=== PATIENT | male | born 1975 | race Caucasian/White ===

== ENCOUNTER 2020-04-27 14:26 | Outpatient (CLI) | payer OTHER, SELFPAY ==
--- NOTE | ~2020-04-27 | XR_ITS ---
EXAMINATION: XR thoracic spine 3V DATE: 04/27/2020 14:55 INDICATION: Dorsalgia. TECHNIQUE: 3 views of thoracic spine were obtained. COMPARISON: Thoracic spine radiographs 04/20/2017 FINDINGS: There is 3 degrees levocurvature of thoracic spine. Vertebral body heights are normal. Ther e is mildly decreased disc height at multiple levels in mid thoracic spine. There are endplate osteop hytes at multiple levels. The facet joints are unremarkable. IMPRESSION: 1. Mild thoracic spondylosis. Reviewed, dictated and finalized at location A. 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
--- NOTE | ~2020-04-27 | XR_ITS ---
EXAMINATION: XR lumbar spine 2-3V DATE: 04/27/2020 14:55 INDICATION: Low back pain. TECHNIQUE: 3 views of lumbar spine were obtained. COMPARISON: Lumbar spine radiographs 04/20/2017 FINDINGS: Bone alignment is normal. There is chronic anterior wedging of T11-L1 vertebral bodies. The re is mildly decreased disc height at T12-L1 and L2-L3. There are endplate osteophytes at most levels . The facet joints are unremarkable. IMPRESSION: 1. Mild lumbar spondylosis. Reviewed, dictated and finalized at location A. 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 Mild lumbar spondylosis.
== END 2020-04-27 14:27 | disposition home or self-care (01) ==
PROVIDERS: PCP Family Medicine; Visit Provider Nurse Practitioner Family
DX: M47.815 Spondylosis without myelopathy or radiculopathy, thoracolumbar region (principal)
CPT/HCPCS: 72072; 72100

== ENCOUNTER 2020-12-29 09:06 | Outpatient (CLI) | payer OTHER, SELFPAY ==
--- NOTE | 2020-12-29 12:00 | NEURO_ITS ---
Impression: # Known diabetic complains of numbness of lower more than upper extremities. # Generalized neuropathy, lower extremities more than upper extremities. # Carpal Tunnel Syndrome of mild degree. # Ulnar neuropathy across the elbow. # Needle/EMG exam not requested. Nerve Conduction Studies Anti Sensory Summary Table Stim Site NR Peak (ms) P-T Amp (?V) Site1 Site2 Delta-P (ms) Dist (cm) Hadley (m/s) Left Median Anti Sensory (2-3nd Digit) Wrist 4.2 62.6 Wrist 2-3nd Digit 4.2 14.0 33 Wrist 4.4 23.6 Wrist 2-3nd Digit 4.2 14.0 33 Right Median Anti Sensory (2-3nd Digit) Wrist 4.0 58.8 Wrist 2-3nd Digit 4.0 14.0 35 Wrist 4.4 27.2 Wrist 2-3nd Digit 4.0 14.0 35 Left Radial Anti Sensory (Base 1st Digit) Wrist 2.6 22.8 Wrist Base 1st Digit 2.6 0.0 Right Radial Anti Sensory (Base 1st Digit) Wrist 2.5 15.1 Wrist Base 1st Digit 2.5 0.0 Left Sup Fibular Anti Sensory (Ant Lat Mall) NO RESPONSE 14 cm NR 14 cm Ant Lat Mall 16.0 Right Sup Fibular Anti Sensory (Ant Lat Mall) NO RESPONSE 14 cm NR 14 cm Ant Lat Mall 16.0 Left Sural Anti Sensory (Lat Mall) Calf 3.5 36.1 Calf Lat Mall 3.5 16.0 46 Right Sural Anti Sensory (Lat Mall) NO RESPONSE Calf NR Calf Lat Mall 16.0 Left Ulnar Anti Sensory (5th Digit) Wrist 2.8 16.2 Wrist 5th Digit 2.8 14.0 50 Right Ulnar Anti Sensory (5th Digit) Wrist 3.4 22.2 Wrist 5th Digit 3.4 14.0 41 Motor Summary Table Stim Site NR Onset (ms) O-P Amp (mV) Site1 Site2 Delta-0 (ms) Dist (cm) Hadley (m/s) Left Median Motor (Abd Poll Brev) Wrist 4.6 1.5 Elbow Wrist 5.4 29.0 54 Elbow 10.0 2.1 Right Median Motor (Abd Poll Brev) Wrist 4.4 1.1 Elbow Wrist 4.8 29.0 60 Elbow 9.2 1.0 Left Peroneal Motor (Vastus Med) Ankle 6.5 0.3 Popit Ankle 12.4 39.0 31 Popit 18.9 0.3 Right Peroneal Motor (Vastus Med) NO RESPONSE Ankle NR Popit Ankle 0.0 Popit NR Left Tibial Motor (Abd Thompson Brev) NO RESPONSE Ankle NR Knee NR Right Tibial Motor (Abd Thompson Brev) NO RESPONSE Ankle NR Knee NR Left Ulnar Motor (Abd Dig Minimi) Wrist 3.0 3.2 A Elbow Wrist 5.9 29.0 49 A Elbow 8.9 2.3 B Elbow Wrist 3.9 23.0 59 B Elbow 6.9 3.2 Right Ulnar Motor (Abd Dig Minimi) Wrist 3.1 4.2 A Elbow Wrist 6.4 30.0 47 A Elbow 9.5 3.3 B Elbow Wrist 4.1 23.0 56 B Elbow 7.2 2.3 F Wave Studies NR F-Lat (ms) L-R F-Lat (ms) Left Median (Mrkrs) (Abd Poll Brev) 30.86 0.30 Right Median (Mrkrs) (Abd Poll Brev) 31.15 0.30 Left Peroneal (Mrkrs) (EDB) DISPERSED RESPONSE NR Right Peroneal (Mrkrs) (EDB) NO RESPONSE NR Left Tibial (Mrkrs) (Abd Hallucis) 53.33 Right Tibial (Mrkrs) (Abd Hallucis) NO RESPONSE NR Left Ulnar (Mrkrs) (Abd Dig Min) 31.27 0.23 Right Ulnar (Mrkrs) (Abd Dig Min) 31.51 0.23 MTDD
== END 2020-12-29 09:07 | disposition home or self-care (01) ==
PROVIDERS: PCP Family Medicine; Visit Provider Nurse Practitioner Family
DX: R20.0 Anesthesia of skin (principal); G56.03 Carpal tunnel syndrome, bilateral upper limbs; G62.9 Polyneuropathy, unspecified
CPT/HCPCS: 95913

== ENCOUNTER 2021-03-10 08:15 | Outpatient (CLI) | payer OTHER, SELFPAY ==
--- NOTE | ~2021-03-10 | NM_ITS ---
EXAMINATION: NM karen stress w perfusion DATE: 03/10/2021 10:38 INDICATION: Atherosclerotic heart disease of [place] coronary arteries. TECHNIQUE: Rest images were obtained following intravenous administration of 9.3 mCi Tc99m tetrofosmi n (Myoview). The patient was infused intravenously with Lexiscan (regadenoson). Then, 28.9 mCi Tc99m tetrofosmin (Myoview) was administered intravenously, and stress images were obtained. Data was recon structed into short axis and horizontal and vertical long axis SPECT images. Gated SPECT images were also obtained. COMPARISON: Myocardial perfusion imaging 11/16/2017 FINDINGS: There is no definite reversible or fixed perfusion abnormality to suggest ischemia or infar ction. There is no segmental wall motion abnormality. Left ventricular ejection fraction measures 6 8%. IMPRESSION: 1. No definite ischemia or infarct. 2. Normal left ventricular ejection fraction measuring 68%. Reviewed, dictated and finalized at location A. CEMENTER
--- NOTE | 2021-03-10 08:29 | EST_ITS ---
Patient Info Name: Tacho Bone Age: 45 years : 1975 Gender: Male Ht: 70 in Wt: 244 lbs BSA: 2.38 m2 HR: 71 bpm BP: 117 / 78 mmHg Heart Rhythm: Sinus Rhythm Exam Date: 03/10/2021 9:23 AM Exam Location: [facility] Stress Patient Status: Outpatient Admit Date: 03/10/2021 Staff Ordering Physician: Nitin Alba DO Attending Provider: Nitin Alba DO Exercise Technologist: Luiza Gregg CT Exercise Physician: Nitin Alba DO Exam Type: CA stress karen w NM Study Info Indications I25.10 - Atherosclerotic heart disease of [place] coronary artery without angina pectoris A regadenoson stress test was performed. Summary 1. 1. Negative lexiscan stress test for ischemic ST changes by ECG criteria. 2. 2. Stable hemodynamics throughout the test. 3. 3. Nuclear scan to follow and will be reported separately. Please correlate with it. 4. 4. Patient informed of the above results. Protocol: Lexiscan Stress ECG Details Stage: REST Duration (min): 1 min : 5 sec HR (bpm): 71 SBP (mmHg): 114 DBP (mmHg): 78 Stage: REST Duration (min): 13 min : 47 sec HR (bpm): 69 SBP (mmHg): 114 DBP (mmHg): 78 Stage: STAGE 1 Duration (min): 0 min : 59 sec HR (bpm): 92 SBP (mmHg): 133 DBP (mmHg): 48 Stage: RECOVERY Duration (min): 1 min : 0 sec HR (bpm): 91 SBP (mmHg): 133 DBP (mmHg): 48 Stage: RECOVERY Duration (min): 2 min : 0 sec HR (bpm): 86 SBP (mmHg): 133 DBP (mmHg): 48 Stage: RECOVERY Duration (min): 3 min : 0 sec HR (bpm): 84 SBP (mmHg): 152 DBP (mmHg): 90 Stage: RECOVERY Duration (min): 3 min : 10 sec HR (bpm): 81 SBP (mmHg): 152 DBP (mmHg): 90 Rest HR: 69 bpm Peak HR: 92 bpm Rest Sys BP: 114 mmHg Peak Sys BP: 152 mmHg Max Pred HR: 175 bpm % Max Pred HR: 53 % Target HR: 149 bpm Max RPP: 13,984 bpm*mmHg Termination Reason: Completed protocol Cardiac Symptoms: Shortness of breath, Stomach discomfort Total Time: 1 min : 0 sec Rest Paez BP: 78 mmHg Peak Paez BP: 90 mmHg Total Dose: 0.4 mg Resting ECG Sinus rhythm, cannot r/o septal infarct, age indeterminate. Stress ECG No ST changes. Arrhythmias None. Report Signatures
== END 2021-03-10 08:16 | disposition home or self-care (01) ==
PROVIDERS: PCP Family Medicine; Visit Provider Internal Medicine Cardiovascular Disease
DX: I25.10 Atherosclerotic heart disease of native coronary artery without angina pectoris (principal)
CPT/HCPCS: 78452; 93017; A9502; J2785

== ENCOUNTER 2021-07-29 14:54 | Outpatient (CLI) | payer OTHER, SELFPAY ==
--- NOTE | ~2021-07-29 | MR_ITS ---
EXAMINATION: MR lumbar spine wo con DATE: 07/29/2021 16:01 INDICATION: Lumbar spondylosis without myelopathy or radiculopathy. TECHNIQUE: Magnetic resonance imaging (MRI) of the lumbar spine was performed without intravenous con trast. Sequences included sagittal T2-weighted FSE, sagittal T2-weighted FS FSE, sagittal T1-weighted FSE, and axial T2-weighted FSE. COMPARISON: Lumbar spine MRI 09/14/2016 FINDINGS: Bone alignment is normal. There is mild chronic anterior wedging of T12 vertebral body. The re is a chronic compression fracture of L1 with 2/5 loss of height. There are Schmorl's nodes of supe rior endplates of L3 on S1. There is mildly decreased disc height at L2-L3. The distal spinal cord si gnal intensity is normal. The conus medullaris is at L1-L2. The following disc levels are specificall y discussed: L1-L2: There is a central protrusion. There is mild bilateral facet joint osteoarthritis. There is no neural foraminal stenosis. There is no central canal stenosis. L2-L3: The disc does not extend beyond the endplate margin. There is mild bilateral facet joint osteo arthritis. There is no neural foraminal stenosis. There is no central canal stenosis. L3-L4: The disc does not extend beyond the endplate margin. There is mild bilateral facet joint osteo arthritis. There is no neural foraminal stenosis. There is no central canal stenosis. L4-L5: The disc does not extend beyond the endplate margin. There is mild bilateral facet joint osteo arthritis. There is no neural foraminal stenosis. There is no central canal stenosis. L5-S1: The disc does not extend beyond the endplate margin. There is mild bilateral facet joint osteo arthritis. There is no neural foraminal stenosis. There is no central canal stenosis. IMPRESSION: 1. Mild lumbar spondylosis, stable from 09/14/2016. Reviewed, dictated and finalized at location A.
== END 2021-07-29 14:55 | disposition home or self-care (01) ==
PROVIDERS: PCP Family Medicine; Visit Provider Nurse Practitioner Family
DX: M47.816 Spondylosis without myelopathy or radiculopathy, lumbar region (principal)
CPT/HCPCS: 72148

== ENCOUNTER 2023-05-11 11:47 | Outpatient (CLI) | payer OTHER, SELFPAY ==
[2023-05-11 12:12] LABS: Hematocrit 49.9 % (42.0-52.0); Mean Corpuscular HGB Conc 34.1 g/dl (32-36); Mean Corpuscular Hemoglobin 30.5 pg (26-34); Mean Corpuscular Volume 89.6 fl (80-100); Mean Platelet Volume 10.6 fl (7.4-10.4); Platelet Count Result 233 k/mm3 (150-375); Red Blood Count 5.57 M/mm3 (4.6-6.20); Red Cell Distribution Width 12.6 % (11.5-14.5); White Blood Count 9.8 K/mm3 (4.5-10.0)
--- NOTE | 2023-05-11 12:25 | ECG_ITS ---
Measurements Intervals Manning Rate: 77 P: 62 AL: 142 QRS: 11 QRSD: 102 T: 56 QT: 382 QTc: 433 Interpretive Statements SINUS RHYTHM WITH FREQUENT VENTRICULAR PREMATURE COMPLEXES POSSIBLE LEFT ATRIAL ENLARGEMENT [-0.1mV P WAVE IN V1/V2] POSSIBLE ANTERIOR MYOCARDIAL INFARCTION , OF INDETERMINATE AGE [30 ms Q WAVE IN V3/V4, OR R < 0.2 mV IN V4] COMPARED TO ECG 07/14/2018 07:30:30 PVCS NOW PRESENT Electronically Signed On 05-11-2023 12:43:08 PORTFOLIO ADMINISTRATOR by Opal Quiles M.D.
[2023-05-11 12:35] LABS: Alanine Aminotransferase 35 U/L (6-50); Albumin Level 4.3 g/dL (3.5-5.1); Alkaline Phosphatase 75 U/L (38-126); Anion Gap 6 mmol/L (8-16); Aspartate Amino Transferase 28 U/L (17-59); Bilirubin,Total 0.7 mg/dL (0.2-1.3); Blood Urea Nitrogen 19 mg/dL (9-20); Calcium 9.6 mg/dL (8.4-10.2); Carbon Dioxide 25 mmol/L (22-30); Chloride 103 mmol/L (98-107); Cholesterol 159 mg/dL (0-200); Estimated Glomerular Filt Rate > 60; Glucose 171 mg/dL (65-110); HDL Direct 22 mg/dL; Potassium 4.4 mmol/L (3.4-5.0); Sodium 134 mmol/L (137-145); Triglycerides 350 mg/dL (<150)
[2023-05-11 12:46] LABS: LDL Cholesterol Direct 88 mg/dL
[2023-05-11 13:03] LABS: Prostate Specific Antigen 0.5 ng/mL (< OR = 4.0)
[2023-05-11 13:18] LABS: Creatinine Urine 88.6 mg/dL
[2023-05-11 13:22] LABS: Microalbumin Urine Random 8.9 mg/L (0-16.7)
== END 2023-05-11 11:48 | disposition home or self-care (01) ==
LOC: ANHLAB 11:49
PROVIDERS: PCP Family Medicine; Visit Provider Nurse Practitioner Family
DX: I25.2 Old myocardial infarction (principal); F41.9 Anxiety disorder, unspecified; Z72.0 Tobacco use; I10 Essential (primary) hypertension; E11.65 Type 2 diabetes mellitus with hyperglycemia; Z12.5 Encounter for screening for malignant neoplasm of prostate; R06.02 Shortness of breath; R94.31 Abnormal electrocardiogram [ECG] [EKG]
CPT/HCPCS: 36415; 80053; 80061; 82043; 84153; 84443; 85027; 93005; G0103

== ENCOUNTER 2024-08-05 14:38 | Emergency (ER) | payer OTHER, SELFPAY ==
[2024-08-05 14:49] VITALS: BP 118/80; PULSE 73; RESP 18; TEMP 36.1; O2SAT 98
--- NOTE | 2024-08-05 15:12 | ED_ITS ---
HPI - Ear Problem General Chief complaint: Ear Stated complaint: right ear pain Time Seen by Provider: 08/05/24 15:05 Source: patient and RN notes reviewed Mode of arrival: ambulatory Limitations: no limitations History of Present Illness HPI Narrative: 49-year-old male presents Express Care complaining of right ear pain for 2 weeks. Patient has taken ibuprofen as needed for pain with some relief. Patient states sometimes the pain in his ear radiates into his right jaw.. Patient denies any upper respiratory symptoms, fevers, body aches, chills, cough. Patient denies any dizziness or hearing problems. Related Data Home Medications ?Medication ?Instructions ?Recorded ?Confirmed ?Last Taken ?Type aspirin 81 mg tablet,delayed 81 mg PO DAILY 08/16/22 08/10/23 Unknown History release (Adult Low Dose Aspirin) Allergies Allergy/AdvReac Type Severity Reaction Status Date / Time acetaminophen AdvReac Unknown Nausea and Verified 08/05/24 14:54 Vomiting codeine AdvReac Unknown Nausea and Verified 08/05/24 14:54 Vomiting Review of Systems Review of Systems: CONSTITUTIONAL: Denies fever, chills, or sweats. EYES: Denies visual changes, redness, or discharge. ENT: Denies rhinorrhea, congestion, sore throat. Positive for otalgia. CARDIOVASCULAR: Denies chest pain, palpitations, or edema. RESPIRATORY: Denies cough or dyspnea. GASTROINTESTINAL: Denies abdominal pain, nausea, vomiting, or diarrhea. GENITOURINARY: Denies dysuria or hematuria. SKIN: Denies rash or itching. MUSCULOSKELETAL: Denies back pain, joint pain, or myalgia. NEUROLOGIC: Denies headache, numbness, or weakness. PSYCHIATRIC: Denies anxiety or depression. All other systems reviewed are negative, except as documented in HPI. FORMERLY [facility] Past Medical History Medical History Hx of myocardial infarction Screening for malignant neoplasm of prostate BMI 36.0-36.9,adult Screening for thyroid disorder Exposure to COVID-19 virus Abnormal NCS (nerve conduction studies) Thoracic back sprain BMI 33.0-33.9,adult Tobacco abuse Acute low back pain without sciatica Smoking Surgical History Surgical History History of right coronary artery stent placement Family History Family History Father Family history of cardiovascular disease Hypertension Family history of heart disease in male family member before age 55 Other Family history of arthritis Social History Social History Smoking status: Current every day smoker Tobacco type: cigarettes Second hand tobacco smoke exposure: No Alcohol intake: current Substance use: never Substance use type: does not use Living arrangements: with family Occupation/Education: occupation Gender identity (if verbalized by the patient): Male Comments At the time of my signature, I reviewed and agree with the nursing past medical, surgical, social, and family history. There is no relevant family history pertinent to the patient complaint. Exam Narrative: GENERAL: This is a well-nourished, well-developed adult, in no apparent distress. They are non ill-appearing, nontoxic appearing. HEAD: normocephalic, atraumatic. EYES: Sclera clear/white. Conjunctiva normal. Vision is grossly intact. Extraocular movements intact EARS: External ears normal, left auditory canals with impacted cerumen and without drainage or swelling, right auditory canal with excessive cerumen, canal is erythematous. Unable to visualize TMs bilaterally.Hearing grossly intact. NOSE: External nose normal with no obvious nasal discharge, nasal turbinates without redness, no rhinorrhea. THROAT: Mucous membranes moist, posterior pharynx clear, without erythema or swelling. Uvula midline. NECK: Neck supple, non-tender without lymphadenopathy, masses or thyromegaly. CARDIOVASCULAR: Regular rate and rhythm without murmurs, gallops, or rubs. RESPIRATORY: Clear to auscultation. Breath sounds equal bilaterally. No wheezes, rales, or rhonchi. GASTROINTESTINAL: Abdomen soft, non-tender, nondistended. Bowel sounds are active. No hepato-splenomegaly, or palpable masses. No guarding. SKIN: warm, Dry, intact with no suspicious lesions or rash, good texture and turgor. NEURO: awake, alert, and oriented to person, place and time. There were no obvious focal neurologic abnormalities. EXTREMITIES: No joint tenderness, effusion, or edema noted. BACK: Nontender without deformity. No CVA tenderness. Course Course Emergency Course: Portions of this record may have been created with voice recognition software Level of Care: Express Care Visit Vital Signs Vital signs: Vital Signs Temperature 97.0 F L 08/05/24 14:49 Pulse Rate 73 08/05/24 14:49 Respiratory Rate 18 08/05/24 14:49 Blood Pressure 118/80 08/05/24 14:49 Pulse Oximetry 98 08/05/24 14:49 Oxygen Delivery Room Air 08/05/24 14:49 Temperature 97.0 F L 08/05/24 14:49 Pulse Rate 73 08/05/24 14:49 Respiratory Rate 18 08/05/24 14:49 Blood Pressure 118/80 08/05/24 14:49 Pulse Oximetry 98 08/05/24 14:49 Oxygen Delivery Room Air 08/05/24 14:49 Reviewed Procedures Ear Wax Removal Both Ears: Ear Wax Removal Date: 08/05/24 Ear Wax Removal Time: 15:35 Cerumenolytic Used: other (Water with low small amount of hydrogen peroxide) Results: Re-examined: cerumen removed completely (Right auditory canal completely removed), some cerumen remains (Left auditory canal remains impacted) and removal reattempted (Unable to remove cerumen and left ear canal) TM Examination: TM(s) perforation (Right TM perforation) Ear Canal Exam: atraumatic and other (Erythematous to the right auditory canal, left auditory canal without swelling or drainage.) Patient Tolerated Procedure: well Complications: no problems Technique: ear canal irrigated (Bilateral auditory canals irrigated) and ear canal curetted (Left auditory canal curetted without success. No curette used to right auditory canal) Additional Comments: After irrigation to the right auditory canal there is evidence of a right TM perforation. Attempted to irrigate left auditory canal unable to remove impacted cerumen with curette. Medical Decision Making MDM Narrative Medical decision making narrative: Patient has evidence of a right otitis externa on the right auditory canal. It was complicated by impacted cerumen. In order to prevent poor penetration of antibiotic drops to the auditory canal, it was elected to irrigate the right auditory canal to remove excessive earwax to allow for better treatment the otitis externa. After irrigation to the right auditory canal, the cerumen was successfully removed through irrigation. However, after irrigation re- examination with otoscope revealed that the patient has a perforated right TM. Given the evidence of infection it is likely the patient had otitis media that led to a spontaneous perforation the right TM. Patient denies any tinnitus, dizziness, or hearing problems. Will treat empirically with ofloxacin ear drops and amoxicillin along with a ENT referral for the perforated eardrum. Attempted to remove earwax with irrigation and curette to the left auditory canal without success. Patient denies any pain or problems to the left ear. Recommend debrox to the left auditory canal to soften earwax. Advised patient not place any debrox in the right ear. Discussed physical exam findings. Anticipatory guidance given. Advised supportive measures and signs/symptoms to go to the ER. Pt is appropriate for outpt treatment and f/u. Differential Diagnosis Differential Diagnosis: Otitis media, otitis externa, perforated eardrum, impacted cerumen Vital Signs Vital Signs: Vital Signs Temperature 97.0 F L 08/05/24 14:49 Pulse Rate 73 08/05/24 14:49 Respiratory Rate 18 08/05/24 14:49 Blood Pressure 118/80 08/05/24 14:49 Pulse Oximetry 98 08/05/24 14:49 Oxygen Delivery Room Air 08/05/24 14:49 Temperature 97.0 F L 08/05/24 14:49 Pulse Rate 73 08/05/24 14:49 Respiratory Rate 18 08/05/24 14:49 Blood Pressure 118/80 08/05/24 14:49 Pulse Oximetry 98 08/05/24 14:49 Oxygen Delivery Room Air 08/05/24 14:49 Critical Care Time Critical Care Time Critical Care Time: No Discharge Plan Discharge Clinical Impression: Otitis externa, Cerumen impaction, Perforated ear drum Patient Disposition: Home Condition: Stable Instructions: Ear Infection (ED) Additional Instructions: Use the ofloxacin ear drops as directed to the right ear. Take the amoxicillin as directed. After irrigating the earwax I your right ear it appears that your right ear drum is perforated likely from a previous infection. Please avoid any water in your right ear. Do not use Q-tips. Do not use the debrox in the right ear. You still have earwax remaining in your left ear. You may use Debrox 5-10 drops into the left ear twice a day for 4 days to soften the earwax. You will need to follow-up with an research scientist about your perforated eardrum. Please follow-up with primary care provider in 3-5 days. If her symptoms worsen, you develop any hearing problems, dizziness or any other concerns please go to the ER immediately. Patient Language: Khmer Prescriptions: New ofloxacin 0.3 % drops 10 drp RIGHT EAR DAILY 7 Days Qty: 10 0RF amoxicillin 875 mg tablet 875 mg PO Q12H 10 Days Qty: 20 0RF No Action aspirin [Adult Low Dose Aspirin] 81 mg tablet,delayed release (DR/EC) 81 mg PO DAILY atorvastatin 80 mg tablet 80 mg PO DAILY Qty: 90 2RF gabapentin 300 mg capsule 300 mg PO DAILY Qty: 30 3RF Rx Instructions: in a.m with 600 mg tab Rybelsus 14 mg tablet 14 mg PO DAILY Qty: 90 4RF paroxetine HCl 10 mg tablet See Rx Instructions .ROUTE .COMPLEX Qty: 90 1RF Dose Instruction: TAKE 1 TABLET BY MOUTH DAILY Rx Instructions: TAKE 1 TABLET BY MOUTH DAILY sildenafil 50 mg tablet 50 mg PO DAILY PRN (Reason: sexual activity) Qty: 9 1RF Jardiance 25 mg tablet 25 mg PO DAILY Qty: 90 0RF albuterol sulfate 90 mcg/actuation HFA aerosol inhaler 1 inh inhalation Q4H PRN (Reason: shortness of breath or wheezing) Qty: 8.5 0RF metoprolol tartrate 50 mg tablet 50 mg PO BID Qty: 180 1RF Breztri Aerosphere 160-9-4.8 mcg/actuation HFA aerosol inhaler 2 inh inhalation BID Qty: 10.7 0RF clopidogrel 75 mg tablet See Rx Instructions .ROUTE .COMPLEX Qty: 90 3RF Dose Instruction: TAKE 1 TABLET BY MOUTH DAILY Rx Instructions: TAKE 1 TABLET BY MOUTH DAILY lisinopril 10 mg tablet 5 mg PO DAILY Qty: 45 1RF gabapentin 600 mg tablet See Rx Instructions .ROUTE .COMPLEX Qty: 270 0RF Dose Instruction: TAKE 1 TABLET BY MOUTH THREE TIMES DAILY Rx Instructions: TAKE 1 TABLET BY MOUTH THREE TIMES DAILY Follow-up/Referrals: Saad Aguilar MD [Physician] - (Right Perforated eardrum) Rizwan Alejo MD [Primary Care Provider] - Stand Alone Forms: Work/School Release IP Time of Disposition: 15:10
== END 2024-08-05 15:48 | disposition home or self-care (01) ==
PROVIDERS: PCP Family Medicine
DX: H60.91 Unspecified otitis externa, right ear (principal); H61.23 Impacted cerumen, bilateral; H72.91 Unspecified perforation of tympanic membrane, right ear; F17.210 Nicotine dependence, cigarettes, uncomplicated; I25.2 Old myocardial infarction; Z95.5 Presence of coronary angioplasty implant and graft; Z79.82 Long term (current) use of aspirin
CPT/HCPCS: 69209; 69210; 99213; A9270; G0463

== ENCOUNTER 2024-08-23 11:26 | Emergency (ER) | payer OTHER, SELFPAY ==
--- NOTE | 2024-08-23 11:28 | ED.URI ---
HPI - URI/Sore Throat General Chief Complaint: Upper Respiratory Infection Stated Complaint: flu symptoms/rash Time Seen by Provider: 08/23/24 11:28 Source: patient Mode of arrival: ambulatory Limitations: no limitations History of Present Illness HPI Narrative: Patient is a 49-year-old male who presents with flu-like symptoms for a week. Patient states his headache and congestion or worse Monday but have improved since then. Patient was seen here and given amoxicillin on the . Patient finish antibiotics 10 days later. Patient has tried [id number] medication with no relief. Denies any fever, chills, nausea, vomiting, diarrhea. Patient also has petechial rash to extremities for 4 days. Denies any itching or pain to rash. Denies any new lotions, soaps or detergents. Related Data Home Medications ?Medication ?Instructions ?Recorded ?Confirmed ?Last Taken ?Type aspirin 81 mg tablet,delayed 81 mg PO DAILY 08/16/22 08/10/23 Unknown History release (Adult Low Dose Aspirin) Allergies Allergy/AdvReac Type Severity Reaction Status Date / Time acetaminophen AdvReac Unknown Nausea and Verified 08/23/24 12:30 Vomiting codeine AdvReac Unknown Nausea and Verified 08/23/24 12:30 Vomiting Review of Systems Review of Systems: All systems reviewed & are unremarkable except as noted in HPI and below Constitutional: Constitutional: Denies chills, Denies fatigue, Denies fever(s), Reports headache(s), Denies malaise and Denies weakness Eyes: Eyes: Denies blurry vision, Denies itchy eyes and Denies loss of vision ENT: Denies otalgia, Denies headache(s), Reports nasal congestion, Denies sinus pain and Denies sore throat Cardiovascular: Cardiovascular: Denies chest pain, Denies irregular heart rhythm and Denies dyspnea Respiratory: Respiratory: Reports cough and Denies dyspnea Gastrointestinal: Gastrointestinal: Denies abdominal pain, Denies diarrhea, Denies nausea and Denies vomiting Musculoskeletal: Musculoskeletal: Denies back pain, Denies myalgias and Denies arthralgias Integumentary/Breasts: Skin/Breast: Denies pruritus and Denies rash Neurologic: Denies headache(s), Denies loss of vision and Denies weakness Psychiatric: Psychiatric: Reports no additional psychiatric complaints Endocrine: Endocrine: Denies fatigue Allergic/Immunologic: Allergic/Immunologic: Denies itchy eyes PMFSH Past Medical History Medical History Hx of myocardial infarction Screening for malignant neoplasm of prostate BMI 36.0-36.9,adult Screening for thyroid disorder Exposure to COVID-19 virus Abnormal NCS (nerve conduction studies) Thoracic back sprain BMI 33.0-33.9,adult Tobacco abuse Acute low back pain without sciatica Smoking Surgical History Surgical History History of right coronary artery stent placement Family History Family History Father Family history of cardiovascular disease Hypertension Family history of heart disease in male family member before age 55 Other Family history of arthritis Social History Social History Smoking status: Current every day smoker Tobacco type: cigarettes Second hand tobacco smoke exposure: No Alcohol intake: current Substance use: never Substance use type: does not use Living arrangements: with family Occupation/Education: occupation Gender identity (if verbalized by the patient): Male Comments At time of signature, agree with nursing past medical, surgical, social and family history. There is no relevant family history pertinent to the presenting complaint. Exam Const: General: cooperative, healthy appearing, comfortable, no acute distress and well nourished Nutritional Appearance: well nourished Orientation/consciousness: patient oriented x3 Limitations: no limitations HENMT: Head: normal to inspection, normocephalic and atraumatic Ears: hearing grossly normal bilaterally, external ears normal, TM's normal bilaterally, no periauricular adenopathy and TM abnormal obstructed by cerumen bilateral Face/Nose/Sinus: Normal external nose present, Abnormal mucous membranes and turbinates present erythematous bilateral and diffuse, normal facial exam, sinuses nontender and face symmetric Face and sinus: normal facial exam, sinuses nontender and face symmetric Mouth: Yes Normal oral and palatal mucosa present, Yes lip normal, Yes tongue normal, Yes Normal salivary glands and ducts present, Yes oropharynx normal and Yes moist mucous membranes Teeth and gingiva: dentition normal Throat: posterior oropharynx normal, tonsils normal and uvula midline Eyes: General: appearance normal, both eyes and all related structures Alignment and Position: alignment normal and position normal Periorbital: periorbital findings normal Eyelids: eyelids normal Pupils: Equal, round and reactive pupils present Neck: Neck: normal visual inspection, full ROM, no lymphadenopathy and supple Chest: Chest palpation & inspection: normal inspection of the chest and normal palpation of entire chest wall Resp: Effort & Inspection: normal respiratory effort and able to speak in complete sentences Auscultation: clear to auscultation bilaterally, no crackles, no rales, no rhonchi and no wheezes Cardio: Rate: regular rate Rhythm: regular rhythm Heart sounds: S1 normal heart sound present and S2 normal heart sound present GI: Inspection: normal to inspection Skin: General skin exam: normal color and no rashes or lesions noted Neuro: General: patient oriented x3 and moves all extremities Cranial nerves: Yes Equal, round and reactive pupils present Speech: normal speech Gait exam (Neuro): Normal gait present Extrem: General: normal to inspection, full ROM and no edema Psych: Appearance: grossly normal and well kempt Mental Status: mental status grossly normal Speech and movement: Normal speech and movement present Affect: normal affect Attitude: cooperative Thought process: Normal thought process present Course Course Emergency Course: Discharge instructions reviewed with patient, as well as provided in writing per nursing staff. The instructions also include specific and strict return/GO TO THE ER as well as f/u information. All questions have been answered, and the patient deny any further questions with discharge and discharge plan. Portions of this record may have been created with voice recognition software Level of Care: Express Care Visit Vital Signs Vital signs: Reviewed MDM - URI/Sore Throat MDM Narrative Medical decision making narrative: Pt well hydrated appearing, in no respiratory distress, hemodynamically stable. Recommend supportive care. The patient is stable at time of discharge the clinical impression was discussed and the patient was given the opportunity to ask questions, which were addressed as completely as possible given the information available at present. Anticipatory guidance and return to care precautions were discussed and the importance of primary care follow-up was stressed and encouraged. The patient voiced understanding of the plan, indications to return, and the need for follow-up. Exam findings show no acute concerns or changes Patient is appropriate for outpatient treatment and follow-up. Differential diagnosis considered: Connolly virus, strep pharyngitis, allergic rhinitis, upper respiratory tract infection, sinusitis, rhinosinusitis, nasopharyngitis. viral pharyngitis, otitis media, otitis externa, otitis effusion, foreign body, cerumen impaction, viral syndrome, and influenza.? Medical Records Attestation: I reviewed the patient's medical records. Discharge Plan Discharge Clinical Impression: URI (upper respiratory infection) Qualifiers: URI type: unspecified viral URI Qualified Code(s): J06.9 - Acute upper respiratory infection, unspecified Patient Disposition: Home Condition: Stable Instructions: Upper Respiratory Infection (ED) Additional Instructions: Your symptoms are likely due to a viral illness, which is not treated with antibiotics. Viral symptoms can be present for up to a few weeks. -For pain/fever, you may take: Tylenol 650-1000mg by mouth every 4-6 hours. Do not exceed 4000mg in 24 hours. Advil (Ibuprofen) 600 mg by mouth every 6 hours. Do not exceed 2400mg in 24 hours. 8 AM: Tylenol 11 AM: Ibuprofen 2 PM: Tylenol 5 PM: Ibuprofen 8 PM: Tylenol 11 PM: Ibuprofen 2 AM: Tylenol 5 AM: Ibuprofen -Antihistamine medication such as Benadryl/Zyrtec at night and Claritin/Nohelia during the day can help improve symptoms. -Use Flonase twice a day for 5 days then daily to help reduce the inflammation and dry up your sinuses. -You can also use Sudafed behind the pharmacy counter(12 or 24 hour). Be sure to drink plenty of water with these medications at least 8 ounces with every dose and it is important to drink 8 to 10 glasses of water per day. Water is a natural decongestant -Eat and drink things that are easy to swallow, like tea or soup, or popsicles. -Oral rinses such as: Salt water gargles and/or may use topical anesthetic (eg. Chloraseptic spray) or lozenges to relieve dryness or throat pain). -Frequent hand washing or hand clinical nursing director is one of the best ways to prevent spread of infection. -Using a vaporizer or humidifier at night will also help thin secretions and help with coughing up phlegm. Call your Primary Care Doctor and make a follow-up appointment in 3 days. If your cough worsens, you develop a fever greater than 103, you develop shaking chills, a fast heartbeat, trouble breathing and/or feel you are are breathing much faster than usual, call your Primary Care Doctor or go to the ER. Patient Language: Mongolian Prescriptions: New prednisone 20 mg tablet 40 mg PO DAILY 5 Days Qty: 10 0RF benzonatate 100 mg capsule 100 mg PO BID PRN (Reason: cough) Qty: 14 0RF No Action ofloxacin 0.3 % drops 10 drp RIGHT EAR DAILY 7 Days Qty: 10 0RF amoxicillin 875 mg tablet 875 mg PO Q12H 10 Days Qty: 20 0RF aspirin [Adult Low Dose Aspirin] 81 mg tablet,delayed release (DR/EC) 81 mg PO DAILY atorvastatin 80 mg tablet 80 mg PO DAILY Qty: 90 2RF gabapentin 300 mg capsule 300 mg PO DAILY Qty: 30 3RF Rx Instructions: in a.m with 600 mg tab Rybelsus 14 mg tablet 14 mg PO DAILY Qty: 90 4RF sildenafil 50 mg tablet 50 mg PO DAILY PRN (Reason: sexual activity) Qty: 9 1RF Jardiance 25 mg tablet 25 mg PO DAILY Qty: 90 0RF albuterol sulfate 90 mcg/actuation HFA aerosol inhaler 1 inh inhalation Q4H PRN (Reason: shortness of breath or wheezing) Qty: 8.5 0RF metoprolol tartrate 50 mg tablet 50 mg PO BID Qty: 180 1RF clopidogrel 75 mg tablet See Rx Instructions .ROUTE .COMPLEX Qty: 90 3RF Dose Instruction: TAKE 1 TABLET BY MOUTH DAILY Rx Instructions: TAKE 1 TABLET BY MOUTH DAILY lisinopril 10 mg tablet 5 mg PO DAILY Qty: 45 1RF gabapentin 600 mg tablet See Rx Instructions .ROUTE .COMPLEX Qty: 270 0RF Dose Instruction: TAKE 1 TABLET BY MOUTH THREE TIMES DAILY Rx Instructions: TAKE 1 TABLET BY MOUTH THREE TIMES DAILY paroxetine HCl 10 mg tablet See Rx Instructions .ROUTE .COMPLEX Qty: 90 1RF Dose Instruction: TAKE 1 TABLET BY MOUTH DAILY Rx Instructions: TAKE 1 TABLET BY MOUTH DAILY Breztri Aerosphere 160-9-4.8 mcg/actuation HFA aerosol inhaler 2 inh inhalation BID Qty: 10.7 0RF Follow-up/Referrals: Rizwan Alejo MD [Primary Care Provider] - 3 Days Stand Alone Forms: Work/School Release IP Time of Disposition: 12:27
[2024-08-23 11:35] VITALS: BP 115/67; PULSE 92; RESP 14; TEMP 36.4; O2SAT 97
== END 2024-08-23 12:35 | disposition home or self-care (01) ==
PROVIDERS: Emergency Provider Nurse Practitioner Family; PCP Family Medicine
DX: J06.9 Acute upper respiratory infection, unspecified (principal); F17.210 Nicotine dependence, cigarettes, uncomplicated; I25.2 Old myocardial infarction; Z95.5 Presence of coronary angioplasty implant and graft; Z79.82 Long term (current) use of aspirin
CPT/HCPCS: 99213; G0463